=== PATIENT | male | born 1950 | race Caucasian/White ===

== ENCOUNTER 2017-05-06 14:39 | Inpatient (IN) | payer BC, OTHER ==
[~2017-05-06] VITALS: Ht 165.1 cm; Wt 104.9 kg
[2017-05-06] MEDS ORDERED: dilTIAZem IV PUSH 25 MG/5 ML VIAL IVP ONE (15:15)
[2017-05-06 15:17] LABS: BASO # 0.1 x10^3/uL (0.0-0.2); BASO % 0 % (0-3); EOS % 0 % (0-3); HEMATOCRIT 45.4 % (39.0-53.0); HEMOGLOBIN 15.3 g/dL (13.0-17.5); LYMPH # 1.1 x10^3/uL (1.0-4.8); LYMPH % 5 % (24-48); MEAN CORPUSCULAR HEMOGLOBIN 31 pg (25-35); MEAN CORPUSCULAR HGB CONC 34 g/dL (31-37); MEAN CORPUSCULAR VOLUME 92 fL (79-100); MONO % 9 % (0-9); NEUT % 86 % (31-73); PLATELET COUNT 180 x10^3/uL (140-400); RED BLOOD COUNT 4.95 x10^6/uL (4.30-5.70); RED CELL DISTRIBUTION WIDTH 13.7 % (11.5-14.5); WHITE BLOOD COUNT 23.2 x10^3/uL (4.0-11.0)
[2017-05-06 15:47] LABS: CREATININE 1.7 mg/dL (0.7-1.3); GFR 40.8; POTASSIUM 3.9 mmol/L (3.5-5.1)
--- NOTE | 2017-05-06 15:52 | PHYS DOC ---
Past Medical History Past Medical History: No Pertinent History Past Surgical History: Other Additional Past Surgical Histo: back sx. benign tumor removed from groin Alcohol Use: Sober Drug Use: None Adult General Chief Complaint Chief Complaint: ABDOMINAL PAIN HPI HPI Patient is a 66 year old morbidly obese male with history of hypertension who presents with sharp written periumbilical pain 24 hours. Pain is described as sharp, radiates to back and is rated mild to severe. Pain is currently mild were not present. Back pain is also resolved. Patient reports nausea and vomiting at times symptoms began. Currently denies nausea. Denies constipation or diarrhea. No flank, chest pain, shortness of breath. No fever chills or sweats. No prior abdominal surgeries. Of note, patient was in A. fib with RVR with a heart rate in the 130s. Patient denies chest pain, palpitations, dizziness lightheadedness or increased fatigue. Patient does not see a doctor routine basis has not been evaluated the past 2 years. He states he was told 3 years ago and had intermittent A. fib was not started on medications. Patient denies increased leg pain or swelling. No other acute symptoms or complaints. Patient is a nonsmoker. His PCP is Dr. David Thompson. Review of Systems Review of Systems Review symptoms as per history of present illness. All other review symptoms are negative. Current Medications Current Medications Current Medications Medications (Trade) Dose Ordered Sig/Gary Start Time Stop Time Status Last Admin Dose Admin Diltiazem HCl (Cardizem) 20 mg 1X ONCE 05/06/17 15:15 05/06/17 15:16 DC 05/06/17 15:18 20 MG Diltiazem HCl 125 mg/Dextrose 125 ml @ 0 mls/hr 1X ONCE 05/06/17 15:15 05/06/17 15:16 DC 05/06/17 15:18 5 MLS/HR Furosemide (Lasix) 40 mg DAILY 05/07/17 09:00 Info (Do NOT chart on this entry -- for MONITORING) 1 each PRN DAILY PRN 05/06/17 16:45 05/08/17 16:44 Iohexol (Omnipaque 350 Mg/ml) 80 ml 1X ONCE 05/06/17 16:45 05/06/17 16:46 DC 05/06/17 16:54 80 ML Allergies Allergies Allergies Coded Allergies Type Severity Reaction Last Updated Verified No Known Drug Allergies 05/06/17 No Physical Exam Physical Exam Constitutional: Well developed, well nourished, no acute distress, non-toxic appearance. [] HENT: Normocephalic, atraumatic, bilateral external ears normal, oropharynx moist, no oral exudates, nose normal. [] Eyes: PERRLA, EOMI, conjunctiva normal, no discharge. [] Neck: Normal range of motion, no tenderness, supple, no stridor. [] Cardiovascular:Heart rate regular rhythm, no murmur [] Lungs & Thorax: Bilateral breath sounds with tachypnea, respirations 30-35 breaths per minute ,clear to auscultation [] Abdomen: Bowel sounds normal, soft, obesity compromising exam, mild periumbilical pain, no tenderness, unable to appreciate pulsatile mass.[] Skin: Warm, dry, no erythema, no rash. [] Back: No tenderness, no CVA tenderness. [] Extremities: No tenderness, no cyanosis, no clubbing, ROM intact, no edema. [] Neurologic: Alert and oriented X 3, normal motor function, normal sensory function, no focal deficits noted. [] Psychologic: Affect normal, judgement normal, mood normal. [] Current Patient Data Vital Signs Vital Signs Date Time Temp Pulse Resp B/P (MAP) Pulse Ox O2 Delivery O2 Flow Rate FiO2 05/06/17 17:40 100 42 115/56 (75) 95 05/06/17 16:40 Nasal Cannula 2.0 05/06/17 14:45 98.2 98.2 Lab Values Laboratory Tests Test 05/06/17 14:55 05/06/17 15:18 05/06/17 16:30 White Blood Count 23.2 x10^3/uL (4.0-11.0) H Red Blood Count 4.95 x10^6/uL (4.30-5.70) Hemoglobin 15.3 g/dL (13.0-17.5) Hematocrit 45.4 % (39.0-53.0) Mean Corpuscular Volume 92 fL (79-100) Mean Corpuscular Hemoglobin 31 pg (25-35) Mean Corpuscular Hemoglobin Concent 34 g/dL (31-37) Red Cell Distribution Width 13.7 % (11.5-14.5) Platelet Count 180 x10^3/uL (140-400) Neutrophils (%) (Auto) 86 % (31-73) H Lymphocytes (%) (Auto) 5 % (24-48) L Monocytes (%) (Auto) 9 % (0-9) Eosinophils (%) (Auto) 0 % (0-3) Basophils (%) (Auto) 0 % (0-3) Neutrophils # (Auto) 20.0 x10^3uL (1.8-7.7) H Lymphocytes # (Auto) 1.1 x10^3/uL (1.0-4.8) Monocytes # (Auto) 2.0 x10^3/uL (0.0-1.1) H Eosinophils # (Auto) 0.0 x10^3/uL (0.0-0.7) Basophils # (Auto) 0.1 x10^3/uL (0.0-0.2) Segmented Neutrophils % 86 % (35-66) H Band Neutrophils % 4 % (0-9) Lymphocytes % 6 % (24-48) L Monocytes % 4 % (0-10) Platelet Estimate Adequate (ADEQUATE) D-Dimer (Deann) 1.14 ug/mlFEU (0.00-0.50) H Sodium Level 133 mmol/L (136-145) L Potassium Level 3.9 mmol/L (3.5-5.1) Chloride Level 95 mmol/L (98-107) L Carbon Dioxide Level 26 mmol/L (21-32) Anion Gap 12 (6-14) Blood Urea Nitrogen 19 mg/dL (8-26) Creatinine 1.7 mg/dL (0.7-1.3) H Estimated GFR (Cockcroft-Gault) 40.8 BUN/Creatinine Ratio 11 (6-20) Glucose Level 173 mg/dL (70-99) H Calcium Level 9.0 mg/dL (8.5-10.1) Total Bilirubin 2.6 mg/dL (0.2-1.0) H Aspartate Amino Transferase (AST) 23 U/L (15-37) Alanine Aminotransferase (ALT) 29 U/L (16-63) Alkaline Phosphatase 89 U/L (46-116) Troponin I Quantitative < 0.017 ng/mL (0.000-0.055) C-Reactive Protein, Quantitative 234.4 mg/L (0-3.3) H GL-Qrs-Z-Type Natriuretic Peptide 1869 pg/mL (0-124) H Total Protein 7.7 g/dL (6.4-8.2) Albumin 3.5 g/dL (3.4-5.0) Albumin/Globulin Ratio 0.8 (1.0-1.7) L Lipase 78 U/L (73-393) O2 Saturation 95 % (92-99) Arterial Blood pH 7.47 (7.35-7.45) H Arterial Blood pCO2 at Patient Temp 35 mmHg (35-46) Arterial Blood pO2 at Patient Temp 69 mmHg (65-108) Arterial Blood HCO3 25 mmol/L (21-28) Arterial Blood Base Excess 2 mmol/L (-3-3) FiO2 28 Lactic Acid Level 1.4 mmol/L (0.4-2.0) Laboratory Tests 05/06/17 14:55 Laboratory Tests 05/06/17 14:55 EKG EKG [EKG: A. fib with RVR, ventricular rate 130, left axis deviation, QTC 409.] Radiology/Procedures Radiology/Procedures [Chest x-ray: Left lung base airspace opacity likely atelectasis or infiltrate per radiology report, CTA chest/abdomen/pelvis: No evidence of dissection or acute cardiopulmonary or intra-abdominal process per radiology report.] Course & Med Decision Making Course & Med Decision Making Pertinent Labs and Imaging studies reviewed. (See chart for details) [A. fib with RVR and congestive heart failure. Patient responded to Cardizem and oxygen. IV Lasix given. Patient started on heparin per cardiology recommendations. Patient also has nondescript abdominal pain with elevated white blood cell count and inflammatory markers. Etiology unclear. Abdomen soft , nontender on my repeat evaluation. Case reviewed in detail with Dr. Lee. Recommendations are to withhold antibiotics at this time and consult infectious disease. Infectious disease consult requested. Patient will stable at time of transfer to [facility] floor. ] Dragon Disclaimer Dragon Disclaimer This electronic medical record was generated, in whole or in part, using a voice recognition dictation system. Departure Departure Disposition: ADMITTED INPATIENT Condition: STABLE Referrals: ROMA THOMPSON MD (PCP) DANNI POTTER DO May 06, 2017 15:52
[2017-05-06 15:53] LABS: ALBUMIN 3.5 g/dL (3.4-5.0); ALBUMIN/GLOBULIN RATIO 0.8 (1.0-1.7); TOTAL BILIRUBIN 2.6 mg/dL (0.2-1.0); TOTAL PROTEIN 7.7 g/dL (6.4-8.2)
--- NOTE | 2017-05-06 15:59 | RAD ---
Examination: Single frontal view of the chest History: History of chest pain Comparison: None available Findings: Low lung volumes and technique accentuates heart size and pulmonary vascularity. Left lung base airspace opacity could be atelectasis or infiltrate. Impression: Left lung base airspace opacity likely atelectasis or infiltrate.
[2017-05-06 16:32] LABS: PLT ESTIMATE ADEQUATE (ADEQUATE)
[2017-05-06 16:42] LABS: FIO2 ABG 28; HCO3 ABG 25 mmol/L (21-28); PCO2 ABG 35 mmHg (35-46); PH ABG 7.47 (7.35-7.45); PO2 ABG 69 mmHg (65-108); SAT O2 ABG 95 % (92-99)
[2017-05-06] MEDS ORDERED: CONTRAST GIVEN MC PRN (16:45)
[2017-05-06] MEDS ORDERED: IOHEXOL 350 MG/ML 100 ML VIAL. IV ONE (16:45)
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
[2017-05-06] MEDS ORDERED: MORPHINE SULFATE 2 MG/ML DISP.SYRIN. IV PRN (19:45)
[2017-05-06] MEDS ORDERED: ONDANSETRON PF 4 MG/2 ML VIAL. IV PRN (19:45)
[2017-05-06 20:50] VITALS: BP 104/58
[2017-05-06] MEDS: HEPARIN for IV BOLUS 10,000 UNIT/10 ML VIAL. IV PRN (20:57)
[2017-05-06] MEDS: HEPARIN 25,000UTS/500ML PREMIX 500 ML IV PRN (21:02)
[2017-05-06 22:16] VITALS: BP 110/70
[2017-05-06 23:00] VITALS: BP 96/50
--- NOTE | 2017-05-06 23:06 | ACF ---
Admission Forms Criteria CARDIOLOGY GRG Clinical Indications for Admission to Inpatient Care ( [place]/check or initial the applicable condition/criteria) Hospital admission is needed for appropriate care of the patient because of ANY ONE of the following: [ ] I. Hemodynamic instability as indicated by ALL of the following (1)(2)(3) (4)(5)(6)(7)(8)(9)(10) [ ]a) Vital sign abnormality not readily corrected by appropriate treatment with 12-24 hours for ANY ONE: [ ]i) Hypotension that persists despite appropriate treatment (eg, volume repletion) [ ]ii) Tachycardiathat persists despite appropriate tx ( e.g., analgesia, fluids, sedation as indicated [ ]iii) Orthostatic vital sign changes that persists despite appropriate treatment (eg, volume repletion) [ ]b) Vital sign abnormailty that is severe indicated by ANY ONE of the following: [ ]i) Inadequate perfusion indicated by ANY ONE of the following: [ ] 1) Lactic acidosis (> 2 mmol/L) [ ] 2) New abnormal capillary refill (> 3 seconds) [ ] 3) Reduced urine output [ ] 4) New altered mental status [ ] 5) Myocardial Ischemia [ ] 6) Other metabolic acidosis (arterial pH <7.35 ) not otherwise explained. [ ]ii) Mean arterial pressure[A] less than 60 mm Hg [ ]iii) Mean arterial pressure[A] less than 70 mm Hg after 30 minutes of appropriate treatment (eg, fluid resuscitation) [ ]iv) Sustained heart rate greater than 120 beats per minute in adult or child 6 years or older[B] [ ]v) IV inotropic or vasopressor medication required to maintain adequate blood pressure or perfusion [ ] II. Severe heart failure as indicated by ANY ONE of the following(17)(18) [ ]a) Respiratory distress [ ]b) Hypotension [ ]c) Debilitating anasarca refractory to therapy (eg, tissue breakdown with infection)[C](19) [ ]d) Cardiac arrhythmias of immediate concern [ ]e) Myocardial ischemia [ ] III. Cardiac arrhythmias or findings of immediate concern indicated by ANY ONE of the following (21)(22): [ ] a) Heart rhythms that are inherently dangerous or unstable indicated by ANY ONE of the following (23)(24)(25): [ ] i) Resuscitated ventricular fibrillation or cardiac arrest [ ] ii) Ventricular escape rhythm [ ] iii) Sustained ventricular tachycardia (30 seconds or more of ventricular rhythm at greater than 100 beats per minute) [ ] iv) Nonsustained ventricular tachycardia and ANY ONE of the following: [ ] 1) Suspected cardiac ischemia as cause or consequence of ventricular tachycardia [ ] 2) Acute myocarditis [ ] b) Unstable cardiac conduction defects indicated by ANY ONE of the following(25)(26)(27) [ ] i) Type II second-degree atrioventricular block [ ]ii) Third-degree atrioventricular block [ ]iii) New-onset left bundle branch block with suspected myocardial ischemia [ ]c) Any heart rhythm and ANY ONE of the following (23)(24)(28)(29) (30) [ ] i) Continuous long-term ECG monitoring needed (e.g., initiation of drug requiring monitoring for more than 24 hours) [ ] ii) Patient has automatic implanted cardioverter defibrillator that is repeatedly firing, malfunctioning, or in need of immediate adjustment of settings beyond the scope of ambulatory or observation care [ ]d) Heart rhythms of concern due to ANY ONE of the following: [ ] i) Hypotension [ ] ii) Respiratory distress [ ] iii) Association with other significant symptoms (e.g., bradycardia with syncope or ongoing dizziness, supraventricular tachycardia with chest pain (28)(29)(31) [ ] IV. Monitoring for cardiac contusion beyond the scope of observation care needed [A](32)(33)(34) [ ] V. Surgical or device complication (e.g., valve replacement complication , ICD disfunction or pacemaker dysfunction) (49)(50)(51)(52)(53)(54) [ ] . Inpatient palliative care needed. [F](51)(52) Also use Inpatient Palliative Care Criteria [ ] VII. Nonbacterial thrombotic (marantic) endocarditis(43)(44)(55)(56)(57) [X ] VIII. Cardiology condition, symptom, or finding for which emergency and observation care has failed or are not considered appropriate. [ ] IX. Acute valvular disease requiring inpatient as indicated by ANY ONE of the following (40)(41) [ ]a) Acute valvular regurgitation (42) [ ]b) Noninfectious valvulitis (43)(44) [ ]c) Obstructive valve thrombosis (45)(46) [ ]d) Paravalvular leak(47)(48) [ ]e) Other significant valvular disorder remaining after emergency or observation level of care (as appropriate) [ ]X. Pericardial disease requiring inpatient treatment as indicated by ANY ONE of the following (35)(36)(37)(38) [ ]a) Suspected tamponade [ ]b) Hemopericardium [ ]c) Other significant pericardial disorder remaining after emergency or observation level of care (as appropriate)(39) [ ] XI. Cardiac ischemia beyond scope of emergency and observation care. [ ] XII. Cyanotic heart disease requiring inpatient care as indicated by 1 or more of the following(58)(59)(60): [ ]a) Acute onset of hypoxemia [ ]b) Exacerbation [ ] XIII. Hypertension requiring inpatient treatment as indicated by ANYONE of the following(11)(12)(13)(14): [ ]a) Severe hypertension (SBP greater than 180 mm Hg or DBP greater than 110 mm Hg, or greater than the 95th percentile for age, gender, and height in pediatric patients) that cannot be controlled (eg, to SBP less than 160 mm Hg and DBP less than 100 mm Hg) by emergency department or observation care treatment(15) [ ]b) Acute end organ damage secondary to hypertension (SBP greater than 140 mm Hg or DBP greater than 90 mm Hg) as indicated by ANYONE of the following: [ ] i) Hypertensive encephalopathy (eg, Altered mental status)(16) [ ] ii) Cerebral infarction [ ] iii) Intracranial hemorrhage [ ] iv) Myocardial ischemia or infarction [ ] v) Heart failure (eg, pulmonary edema) [ ] vi) Aortic dissection [ ] vii) Increased creatinine (new) with reduction of more than 50% in estimated glomerular filtration rate from baseline [ ] viii) Papilledema [ ] ix) Retinal hemorrhage [ ] x) Microangiopathic hemolytic anemia [ ] xi) Seizure [ ] xii) Other significant finding secondary to hypertension [ ] XIV. Complications of transplanted heart indicated by ANY ONE of the following(61): [ ]a) Acute graft rejection requiring inpatient management (eg, intravenous imunosuppression)(62)(63) [ ]b) Acute graft heart failure indicated by ANY ONE of the following(64): [ ] i) Hemodynamic instability [ ] ii) Cardiac arrhythmias of immediate concern [ ] iii) Pulmonary edema that is very severe (eg, mechanical ventilation needed, imminent or likely, need for 100% oxygen to keep oxygen saturation above 90%) [ ] iv) Pulmonary edema that is persistent as indicated by ALL of the following: [ ] 1) New need for oxygen therapy to keep oxygen saturation above 90 % (or increased FiO2 need from baseline) [ ] 2) Has not improved sufficiently with emergency department or observation care IV diuretics or other heart failure treatments[E]. [ ] iv) Altered mental status that is severe or persistent [ ] iv) Increased creatinine (new on laboratory test) with reduction of more than 50% in estimated glomerular filtration rate from baseline [ ] iv) Progressively (ongoing) rising creatinine (known from past laboratory test) with reduction of more than 25% in estimated glomerular filtration rate from baseline [ ] iv) Acute renal failure [ ] iv) Acute peripheral ischemia (eg, examination shows pulseless, cool, mottled, or cyanotic extremity) [ ] iv) Pulmonary artery catheter monitoring needed [ ] iv) Other sign or symptom of heart failure requiring inpatient treatment (ie, too severe or not responsive to outpatient and observation care treatment) [ ]c) Infection requiring inpatient management (eg, Hemodynamic instability, need for intravenous antimicrobial treatment)(66)(67)(68)(69)(70) [ ]d) Cardiac allograft vasculopathy requiring inpatient management (eg evidence of cardiacischemia)(71) [ ]e) Other complication of transplanted heart (eg, stroke, severe pulmonary hypertension, severe valvular dysfunction) requiring inpatient management(72) The original [facility] content created by [employer] has been revised. The portions of the content which have been revised are identified through the use of italic text, and [facility] has neither reviewed nor approved the modified material. All other unmodified content is copyright [facility] Please see references footnoted in the original [facility] edition 2014 Admission Criteria Met?: Yes MATT HEDRICK May 06, 2017 23:06
[2017-05-06] MEDS: AZITHROMYCIN 500 MG in IV NORMAL SALINE 250ML 250 ML IV SCH (23:38)
[2017-05-07] VITALS (12 sets, daily range): BP systolic 99–185; BP diastolic 51–87
[2017-05-07 04:52] LABS: BASO # 0.1 x10^3/uL (0.0-0.2); BASO % 0 % (0-3); EOS % 0 % (0-3); HEMATOCRIT 47.3 % (39.0-53.0); HEMOGLOBIN 15.3 g/dL (13.0-17.5); LYMPH # 1.7 x10^3/uL (1.0-4.8); LYMPH % 8 % (24-48); MEAN CORPUSCULAR HEMOGLOBIN 31 pg (25-35); MEAN CORPUSCULAR HGB CONC 32 g/dL (31-37); MEAN CORPUSCULAR VOLUME 94 fL (79-100); MONO % 9 % (0-9); NEUT % 82 % (31-73); PLATELET COUNT 135 x10^3/uL (140-400); RED BLOOD COUNT 5.03 x10^6/uL (4.30-5.70); RED CELL DISTRIBUTION WIDTH 13.8 % (11.5-14.5)
[2017-05-07 05:05] LABS: ALBUMIN 3.3 g/dL (3.4-5.0); ALBUMIN/GLOBULIN RATIO 0.9 (1.0-1.7); CALCIUM 8.7 mg/dL (8.5-10.1); CREATININE 1.5 mg/dL (0.7-1.3); GFR 47.1; POTASSIUM 4.3 mmol/L (3.5-5.1); TOTAL BILIRUBIN 2.4 mg/dL (0.2-1.0); TOTAL PROTEIN 6.8 g/dL (6.4-8.2)
[2017-05-07] MEDS: HEPARIN for IV BOLUS 10,000 UNIT/10 ML VIAL. IV PRN (06:00)
--- NOTE | 2017-05-07 08:23 | EKG ---
[facility] [address] [place] [address] Test Date: 2017-05-06 Test Time: 14:59:23 Pat Name: VASILE LANGE Department: Room: Gender: M Swamper: : 1950 Requested By: DANNI POTTER Order Number: [id number] Reading MD: Measurements Intervals Douglas Rate: 130 P: ND: QRS: -3 QRSD: 86 T: 9 QT: 274 QTc: 409 Interpretive Statements IRREGULAR RHYTHM, NO P-WAVE FOUND LEFTWARD AXIS R-S TRANSITION ZONE IN V LEADS DISPLACED TO THE LEFT OTHERWISE NORMAL ECG RI6.01 No previous ECG available for comparison
--- NOTE | 2017-05-07 08:50 | PDOC ---
Infectious Disease Note ROS ROS GEN: Denies fevers, chills, sweats HEENT: Denies blurred vision, sore throat CV: Denies chest pain RESP: Denies shortness of air, cough GI: Denies n/v/d NEURO: Denies confusion, dizziness MSK: Denies weakness, joint pain/swelling Vital Sign Vital Signs Vital Signs Date Time Temp Pulse Resp B/P (MAP) Pulse Ox O2 Delivery O2 Flow Rate FiO2 05/07/17 07:50 Nasal Cannula 2.0 05/07/17 07:16 98.2 72 21 131/87 (102) 97 98.2 Physical Exam PHYSICAL EXAM GENERAL: NAD, Alert HEENT: PERRL, OC/OP NECK: Supple, no JVD, no LN LUNGS: Clear HEART: S1S2, no gallop, no murmur ABD: Soft, NT, no organomegaly, no rebound EXT: No edema, no cyanosis MANAGER COMPENSATION: Alert, oriented x 3, no focal neurologic deficit SKIN: No rash IV: ok Labs Lab Laboratory Tests Test 05/06/17 14:55 05/06/17 15:18 05/06/17 16:30 05/07/17 03:30 White Blood Count 23.2 x10^3/uL (4.0-11.0) 21.0 x10^3/uL (4.0-11.0) Red Blood Count 4.95 x10^6/uL (4.30-5.70) 5.03 x10^6/uL (4.30-5.70) Hemoglobin 15.3 g/dL (13.0-17.5) 15.3 g/dL (13.0-17.5) Hematocrit 45.4 % (39.0-53.0) 47.3 % (39.0-53.0) Mean Corpuscular Volume 92 fL (79-100) 94 fL (79-100) Mean Corpuscular Hemoglobin 31 pg (25-35) 31 pg (25-35) Mean Corpuscular Hemoglobin Concent 34 g/dL (31-37) 32 g/dL (31-37) Red Cell Distribution Width 13.7 % (11.5-14.5) 13.8 % (11.5-14.5) Platelet Count 180 x10^3/uL (140-400) 135 x10^3/uL (140-400) Neutrophils (%) (Auto) 86 % (31-73) 82 % (31-73) Lymphocytes (%) (Auto) 5 % (24-48) 8 % (24-48) Monocytes (%) (Auto) 9 % (0-9) 9 % (0-9) Eosinophils (%) (Auto) 0 % (0-3) 0 % (0-3) Basophils (%) (Auto) 0 % (0-3) 0 % (0-3) Neutrophils # (Auto) 20.0 x10^3uL (1.8-7.7) 17.2 x10^3uL (1.8-7.7) Lymphocytes # (Auto) 1.1 x10^3/uL (1.0-4.8) 1.7 x10^3/uL (1.0-4.8) Monocytes # (Auto) 2.0 x10^3/uL (0.0-1.1) 2.0 x10^3/uL (0.0-1.1) Eosinophils # (Auto) 0.0 x10^3/uL (0.0-0.7) 0.0 x10^3/uL (0.0-0.7) Basophils # (Auto) 0.1 x10^3/uL (0.0-0.2) 0.1 x10^3/uL (0.0-0.2) Segmented Neutrophils % 86 % (35-66) Band Neutrophils % 4 % (0-9) Lymphocytes % 6 % (24-48) Monocytes % 4 % (0-10) Platelet Estimate Adequate (ADEQUATE) D-Dimer (Deann) 1.14 ug/mlFEU (0.00-0.50) Sodium Level 133 mmol/L (136-145) 137 mmol/L (136-145) Potassium Level 3.9 mmol/L (3.5-5.1) 4.3 mmol/L (3.5-5.1) Chloride Level 95 mmol/L (98-107) 99 mmol/L (98-107) Carbon Dioxide Level 26 mmol/L (21-32) 25 mmol/L (21-32) Anion Gap 12 (6-14) 13 (6-14) Blood Urea Nitrogen 19 mg/dL (8-26) 27 mg/dL (8-26) Creatinine 1.7 mg/dL (0.7-1.3) 1.5 mg/dL (0.7-1.3) Estimated GFR (Cockcroft-Gault) 40.8 47.1 BUN/Creatinine Ratio 11 (6-20) 18 (6-20) Glucose Level 173 mg/dL (70-99) 127 mg/dL (70-99) Calcium Level 9.0 mg/dL (8.5-10.1) 8.7 mg/dL (8.5-10.1) Total Bilirubin 2.6 mg/dL (0.2-1.0) 2.4 mg/dL (0.2-1.0) Aspartate Amino Transf (AST/SGOT) 23 U/L (15-37) 28 U/L (15-37) Alanine Aminotransferase (ALT/SGPT) 29 U/L (16-63) 26 U/L (16-63) Alkaline Phosphatase 89 U/L (46-116) 97 U/L (46-116) Troponin I Quantitative < 0.017 ng/mL (0.000-0.055) < 0.017 ng/mL (0.000-0.055) C-Reactive Protein, Quantitative 234.4 mg/L (0-3.3) 267.5 mg/L (0-3.3) TQ-Bjx-J-Type Natriuretic Peptide 1869 pg/mL (0-124) 863 pg/mL (0-124) Total Protein 7.7 g/dL (6.4-8.2) 6.8 g/dL (6.4-8.2) Albumin 3.5 g/dL (3.4-5.0) 3.3 g/dL (3.4-5.0) Albumin/Globulin Ratio 0.8 (1.0-1.7) 0.9 (1.0-1.7) Lipase 78 U/L (73-393) O2 Saturation 95 % (92-99) Arterial Blood pH 7.47 (7.35-7.45) Arterial Blood pCO2 at Patient Temp 35 mmHg (35-46) Arterial Blood pO2 at Patient Temp 69 mmHg (65-108) Arterial Blood HCO3 25 mmol/L (21-28) Arterial Blood Base Excess 2 mmol/L (-3-3) FiO2 28 Lactic Acid Level 1.4 mmol/L (0.4-2.0) Heparin Anti-Xa Act, Unfractionated < 0.10 IU/mL (0.30-0.70) Objective Assessment Leukocytosis COPD A fib with RVR Abdominal pain and back pain resolved Obesity Plan Plan of Care rocephine and azithro soon to change to po check cultures DELICIA HOWELL MD May 07, 2017 08:50
[2017-05-07] MEDS ORDERED: FUROSEMIDE 40 MG/4 ML VIAL. IVP SCH (09:00)
[2017-05-07] MEDS ORDERED: PNEUMOC CONJ VACC 23-VALENT 0.5 ML VIAL. VAX IM ONE (09:00)
[2017-05-07] MEDS ORDERED: PNEUMOCOCCAL VAX SCREEN BY RX. MC ONE (09:00)
[2017-05-07] MEDS: FUROSEMIDE 20 MG/2 ML VIAL. IVP SCH ×2 (09:07→16:22)
--- NOTE | 2017-05-07 09:20 | PDOC ---
GENERAL General: see dictated H&P. Problems: VITAL SIGNS Vital Signs: Vital Signs Date Time Temp Pulse Resp B/P (MAP) Pulse Ox O2 Delivery O2 Flow Rate FiO2 05/07/17 07:50 Nasal Cannula 2.0 05/07/17 07:16 98.2 72 21 131/87 (102) 97 98.2 ALLERGIES Allergies: Allergies Coded Allergies Type Severity Reaction Last Updated Verified No Known Drug Allergies 05/06/17 No MEDS Medications: Current Medications Medications (Trade) Dose Ordered Sig/Gary Start Time Stop Time Status Last Admin Dose Admin Azithromycin 500 mg/Sodium Chloride 250 ml @ 250 mls/hr Q24H 05/06/17 23:30 05/06/17 23:38 250 MLS/HR Ceftriaxone Sodium 1 gm/ Sodium Chloride 50 ml @ 100 mls/hr Q24H 05/06/17 23:30 05/06/17 23:38 100 MLS/HR Diltiazem HCl (Cardizem) 20 mg 1X ONCE 05/06/17 15:15 05/06/17 15:16 DC 05/06/17 15:18 20 MG Diltiazem HCl 125 mg/Dextrose 125 ml @ 0 mls/hr CONT PRN 05/06/17 20:00 05/06/17 23:39 10 MLS/HR Furosemide (Lasix) 20 mg [id number] 05/07/17 09:00 05/07/17 09:07 20 MG Heparin Sodium (Porcine) (Heparin Sodium) 2,650 unit PRN Q6HRS PRN 05/06/17 19:45 05/07/17 06:00 2,650 UNIT Heparin Sodium/ Dextrose 500 ml @ 0 mls/hr CONT PRN 05/06/17 20:00 05/06/17 21:02 20 MLS/HR Info (Do NOT chart on this entry -- for MONITORING) 1 each PRN DAILY PRN 05/06/17 16:45 05/08/17 16:44 Iohexol (Omnipaque 350 Mg/ml) 80 ml 1X ONCE 05/06/17 16:45 05/06/17 16:46 DC 05/06/17 16:54 80 ML Morphine Sulfate 2 mg PRN Q2HR PRN 05/06/17 19:45 05/07/17 19:44 Ondansetron HCl (Zofran) 4 mg PRN Q8HRS PRN 05/06/17 19:45 05/07/17 19:44 Pneumococcal Polyvalent Vaccine (Do NOT chart on this placeholder) 1 each 1X ONCE 05/07/17 09:00 05/07/17 09:01 UNV Pneumococcal Polyvalent Vaccine (Pneumovax 23) 0.5 ml ONCE ONCE 05/07/17 09:00 05/07/17 09:01 DC 05/07/17 09:07 0.5 ML LAB Lab: Laboratory Tests Test 05/06/17 14:55 05/06/17 15:18 05/06/17 16:30 05/07/17 03:30 White Blood Count 23.2 x10^3/uL (4.0-11.0) 21.0 x10^3/uL (4.0-11.0) Red Blood Count 4.95 x10^6/uL (4.30-5.70) 5.03 x10^6/uL (4.30-5.70) Hemoglobin 15.3 g/dL (13.0-17.5) 15.3 g/dL (13.0-17.5) Hematocrit 45.4 % (39.0-53.0) 47.3 % (39.0-53.0) Mean Corpuscular Volume 92 fL (79-100) 94 fL (79-100) Mean Corpuscular Hemoglobin 31 pg (25-35) 31 pg (25-35) Mean Corpuscular Hemoglobin Concent 34 g/dL (31-37) 32 g/dL (31-37) Red Cell Distribution Width 13.7 % (11.5-14.5) 13.8 % (11.5-14.5) Platelet Count 180 x10^3/uL (140-400) 135 x10^3/uL (140-400) Neutrophils (%) (Auto) 86 % (31-73) 82 % (31-73) Lymphocytes (%) (Auto) 5 % (24-48) 8 % (24-48) Monocytes (%) (Auto) 9 % (0-9) 9 % (0-9) Eosinophils (%) (Auto) 0 % (0-3) 0 % (0-3) Basophils (%) (Auto) 0 % (0-3) 0 % (0-3) Neutrophils # (Auto) 20.0 x10^3uL (1.8-7.7) 17.2 x10^3uL (1.8-7.7) Lymphocytes # (Auto) 1.1 x10^3/uL (1.0-4.8) 1.7 x10^3/uL (1.0-4.8) Monocytes # (Auto) 2.0 x10^3/uL (0.0-1.1) 2.0 x10^3/uL (0.0-1.1) Eosinophils # (Auto) 0.0 x10^3/uL (0.0-0.7) 0.0 x10^3/uL (0.0-0.7) Basophils # (Auto) 0.1 x10^3/uL (0.0-0.2) 0.1 x10^3/uL (0.0-0.2) Segmented Neutrophils % 86 % (35-66) Band Neutrophils % 4 % (0-9) Lymphocytes % 6 % (24-48) Monocytes % 4 % (0-10) Platelet Estimate Adequate (ADEQUATE) D-Dimer (Deann) 1.14 ug/mlFEU (0.00-0.50) Sodium Level 133 mmol/L (136-145) 137 mmol/L (136-145) Potassium Level 3.9 mmol/L (3.5-5.1) 4.3 mmol/L (3.5-5.1) Chloride Level 95 mmol/L (98-107) 99 mmol/L (98-107) Carbon Dioxide Level 26 mmol/L (21-32) 25 mmol/L (21-32) Anion Gap 12 (6-14) 13 (6-14) Blood Urea Nitrogen 19 mg/dL (8-26) 27 mg/dL (8-26) Creatinine 1.7 mg/dL (0.7-1.3) 1.5 mg/dL (0.7-1.3) Estimated GFR (Cockcroft-Gault) 40.8 47.1 BUN/Creatinine Ratio 11 (6-20) 18 (6-20) Glucose Level 173 mg/dL (70-99) 127 mg/dL (70-99) Calcium Level 9.0 mg/dL (8.5-10.1) 8.7 mg/dL (8.5-10.1) Total Bilirubin 2.6 mg/dL (0.2-1.0) 2.4 mg/dL (0.2-1.0) Aspartate Amino Transf (AST/SGOT) 23 U/L (15-37) 28 U/L (15-37) Alanine Aminotransferase (ALT/SGPT) 29 U/L (16-63) 26 U/L (16-63) Alkaline Phosphatase 89 U/L (46-116) 97 U/L (46-116) Troponin I Quantitative < 0.017 ng/mL (0.000-0.055) < 0.017 ng/mL (0.000-0.055) C-Reactive Protein, Quantitative 234.4 mg/L (0-3.3) 267.5 mg/L (0-3.3) EH-Cny-L-Type Natriuretic Peptide 1869 pg/mL (0-124) 863 pg/mL (0-124) Total Protein 7.7 g/dL (6.4-8.2) 6.8 g/dL (6.4-8.2) Albumin 3.5 g/dL (3.4-5.0) 3.3 g/dL (3.4-5.0) Albumin/Globulin Ratio 0.8 (1.0-1.7) 0.9 (1.0-1.7) Lipase 78 U/L (73-393) O2 Saturation 95 % (92-99) Arterial Blood pH 7.47 (7.35-7.45) Arterial Blood pCO2 at Patient Temp 35 mmHg (35-46) Arterial Blood pO2 at Patient Temp 69 mmHg (65-108) Arterial Blood HCO3 25 mmol/L (21-28) Arterial Blood Base Excess 2 mmol/L (-3-3) FiO2 28 Lactic Acid Level 1.4 mmol/L (0.4-2.0) Heparin Anti-Xa Act, Unfractionated < 0.10 IU/mL (0.30-0.70) ROMA THOMPSON MD May 07, 2017 09:20
--- NOTE | 2017-05-07 10:07 | HP ---
ADMIT DATE: 05/06/2017 CHIEF COMPLAINT AND HISTORY OF PRESENT ILLNESS: This 66-year-old white male presented to the Emergency Room on the day of admission with having had upper abdominal pain with radiation to the back, which was the worst pain of his life. The day prior, he took some aspirin and it seemed to get better. He did have vomiting with it, but did not have any hematemesis with that. He then also all week long has just been feeling somewhat worse and like his energy was gone. He notes really orangish/reddish looking urine and I can find no evidence of UA collected since admission. He otherwise denies any focal symptoms other than he has been more short of breath and has noticed his ankles were more swollen. He was also found to be in AFib with a rapid ventricular response with a rate of 130s on admission and admitted with Cardizem drip and heparin for the same, was also noted to have a white count of 23,000 with a left shift without a definite source, although chest x-ray showed a possible left basilar infiltrate, although he has had no cough or any symptoms to go with and his chest is remarkably clear. His creatinine was also 1.7 on admission. I have no baseline on him to know where this is normally at. PAST MEDICAL HISTORY: Unremarkable. 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 SOCIAL HISTORY: He is a smoker, nondrinker, does not use drugs, takes care of his mother who has dementia. FAMILY HISTORY: Positive for dementia in his mother, colon cancer in his father. MEDICATIONS: None at the time of admission, at least as obtained in the Emergency Room. ALLERGIES: He has no known drug allergies. PHYSICAL EXAMINATION: GENERAL: He is a well-developed, well-nourished white male in no acute distress. VITAL SIGNS: Stable. He is afebrile since admission, pulses are down in the 100 range on a Cardizem and heparin drip. At the time of my examination, he is still on atrial fibrillation. HEENT: Remarkable for glasses. NECK: Supple without bruit, thyromegaly. CHEST: Clear to auscultation and percussion. HEART: Irregularly irregular with rate of approximately 100 without S3, S4, or murmur. ABDOMEN: Soft, nontender, without hepatosplenomegaly or masses. EXTREMITIES: Without cyanosis, clubbing, there is trace edema. NEUROLOGIC: He is intact. IMPRESSION: 1. Atrial fibrillation with rapid ventricular response, being dealt with Cardizem, heparin and Cardiology consultation. 2. Abdominal pain with radiation to the back, uncertain etiology. 3. Abnormal colored urine. I have ordered a UA and we will follow up on that. 4. Leukocytosis with left shift of uncertain etiology, with ID consulted and they have started him on Rocephin and Zithromax. PLAN: The patient will be monitored, managed and treated appropriately. ROMA THOMPSON MD DR: LAUREN/fransico JOB#: [id number] / [id number]
[2017-05-07] MEDS ORDERED: ANTI-COAG MONITOR BY PHARMACY. MC PRN (10:15)
[2017-05-07] MEDS: HEPARIN 25,000UTS/500ML PREMIX 500 ML IV PRN (16:43)
[2017-05-07] MEDS: AZITHROMYCIN 500 MG in IV NORMAL SALINE 250ML 250 ML IV SCH (23:05)
[2017-05-08 03:09] VITALS: BP 142/83
[2017-05-08 07:07] LABS: BASO % 0 % (0-3); EOS % 1 % (0-3); HEMATOCRIT 39.7 % (39.0-53.0); HEMOGLOBIN 12.9 g/dL (13.0-17.5); LYMPH # 1.2 x10^3/uL (1.0-4.8); LYMPH % 7 % (24-48); MEAN CORPUSCULAR HEMOGLOBIN 30 pg (25-35); MEAN CORPUSCULAR HGB CONC 32 g/dL (31-37); MEAN CORPUSCULAR VOLUME 93 fL (79-100); MONO % 11 % (0-9); NEUT % 82 % (31-73); PLATELET COUNT 166 x10^3/uL (140-400); RED BLOOD COUNT 4.28 x10^6/uL (4.30-5.70); RED CELL DISTRIBUTION WIDTH 13.6 % (11.5-14.5); WHITE BLOOD COUNT 17.5 x10^3/uL (4.0-11.0)
[2017-05-08 07:24] LABS: ALBUMIN 2.7 g/dL (3.4-5.0); ALBUMIN/GLOBULIN RATIO 0.6 (1.0-1.7); CALCIUM 8.5 mg/dL (8.5-10.1); CREATININE 1.1 mg/dL (0.7-1.3); GFR 67.4; POTASSIUM 3.6 mmol/L (3.5-5.1); TOTAL BILIRUBIN 1.5 mg/dL (0.2-1.0); TOTAL PROTEIN 6.9 g/dL (6.4-8.2)
[2017-05-08 07:40] VITALS: BP 159/83
--- NOTE | 2017-05-08 08:21 | PDOC ---
Infectious Disease Note Subjective Subjective pt feeling better, no abd pain or n/v ROS ROS GEN: Denies fevers, chills, sweats HEENT: Denies blurred vision, sore throat CV: Denies chest pain RESP: Denies shortness of air, cough GI: Denies n/v/d NEURO: Denies confusion, dizziness MSK: Denies weakness, joint pain/swelling Vital Sign Vital Signs Vital Signs Date Time Temp Pulse Resp B/P (MAP) Pulse Ox O2 Delivery O2 Flow Rate FiO2 05/08/17 07:40 97.8 80 21 159/83 (108) 93 Nasal Cannula 2.0 97.8 Physical Exam PHYSICAL EXAM GENERAL: NAD, Alert HEENT: PERRL, OC/OP NECK: Supple, no JVD, no LN LUNGS: Clear HEART: S1S2, no gallop, no murmur ABD: Soft, NT, no organomegaly, no rebound EXT: No edema, no cyanosis SUPERVISOR ROUGH END: Alert, oriented x 3, no focal neurologic deficit SKIN: No rash IV: ok Labs Lab Laboratory Tests Test 05/07/17 12:00 05/07/17 17:45 05/08/17 00:20 05/08/17 06:15 Heparin Anti-Xa Act, Unfractionated 0.24 IU/mL (0.30-0.70) 0.30 IU/mL (0.30-0.70) 0.32 IU/mL (0.30-0.70) White Blood Count 17.5 x10^3/uL (4.0-11.0) Red Blood Count 4.28 x10^6/uL (4.30-5.70) Hemoglobin 12.9 g/dL (13.0-17.5) Hematocrit 39.7 % (39.0-53.0) Mean Corpuscular Volume 93 fL (79-100) Mean Corpuscular Hemoglobin 30 pg (25-35) Mean Corpuscular Hemoglobin Concent 32 g/dL (31-37) Red Cell Distribution Width 13.6 % (11.5-14.5) Platelet Count 166 x10^3/uL (140-400) Neutrophils (%) (Auto) 82 % (31-73) Lymphocytes (%) (Auto) 7 % (24-48) Monocytes (%) (Auto) 11 % (0-9) Eosinophils (%) (Auto) 1 % (0-3) Basophils (%) (Auto) 0 % (0-3) Neutrophils # (Auto) 14.2 x10^3uL (1.8-7.7) Lymphocytes # (Auto) 1.2 x10^3/uL (1.0-4.8) Monocytes # (Auto) 1.9 x10^3/uL (0.0-1.1) Eosinophils # (Auto) 0.1 x10^3/uL (0.0-0.7) Basophils # (Auto) 0.0 x10^3/uL (0.0-0.2) Sodium Level 137 mmol/L (136-145) Potassium Level 3.6 mmol/L (3.5-5.1) Chloride Level 98 mmol/L (98-107) Carbon Dioxide Level 31 mmol/L (21-32) Anion Gap 8 (6-14) Blood Urea Nitrogen 20 mg/dL (8-26) Creatinine 1.1 mg/dL (0.7-1.3) Estimated GFR (Cockcroft-Gault) 67.4 BUN/Creatinine Ratio 18 (6-20) Glucose Level 163 mg/dL (70-99) Calcium Level 8.5 mg/dL (8.5-10.1) Total Bilirubin 1.5 mg/dL (0.2-1.0) Aspartate Amino Transf (AST/SGOT) 17 U/L (15-37) Alanine Aminotransferase (ALT/SGPT) 25 U/L (16-63) Alkaline Phosphatase 88 U/L (46-116) Total Protein 6.9 g/dL (6.4-8.2) Albumin 2.7 g/dL (3.4-5.0) Albumin/Globulin Ratio 0.6 (1.0-1.7) Objective Assessment Leukocytosis COPD A fib with RVR Abdominal pain and back pain resolved Obesity Plan Plan of Care murtaza,, change to thompson kim cultures DELICIA Damian MD May 08, 2017 08:21
--- NOTE | 2017-05-08 08:25 | PDOC ---
GENERAL General: vss and afebrile. awake and alert. remains a-fib with rate controlled. suspect cardiology will change to po cardizem and anticoagulant today. discussed with ID and negative cultures to date and wbc decreasing and they plan to change to po. will do 6 minute walk at ok to see if O2 needs at home. Problems: VITAL SIGNS Vital Signs: Vital Signs Date Time Temp Pulse Resp B/P (MAP) Pulse Ox O2 Delivery O2 Flow Rate FiO2 05/08/17 07:40 97.8 80 21 159/83 (108) 93 Nasal Cannula 2.0 97.8 ALLERGIES Allergies: Allergies Coded Allergies Type Severity Reaction Last Updated Verified No Known Drug Allergies 05/06/17 No MEDS Medications: Current Medications Medications (Trade) Dose Ordered Sig/Gary Start Time Stop Time Status Last Admin Dose Admin Azithromycin 500 mg/Sodium Chloride 250 ml @ 250 mls/hr Q24H 05/06/17 23:30 05/07/17 23:05 250 MLS/HR Ceftriaxone Sodium 1 gm/ Sodium Chloride 50 ml @ 100 mls/hr Q24H 05/06/17 23:30 05/07/17 22:16 100 MLS/HR Diltiazem HCl (Cardizem) 20 mg 1X ONCE 05/06/17 15:15 05/06/17 15:16 DC 05/06/17 15:18 20 MG Diltiazem HCl 125 mg/Dextrose 125 ml @ 0 mls/hr CONT PRN 05/06/17 20:00 05/08/17 01:25 0 MLS/HR Furosemide (Lasix) 20 mg [id number] 05/07/17 09:00 05/07/17 16:22 20 MG Heparin Sodium (Porcine) (Heparin Sodium) 2,650 unit PRN Q6HRS PRN 05/06/17 19:45 05/07/17 06:00 2,650 UNIT Heparin Sodium/ Dextrose 500 ml @ 0 mls/hr CONT PRN 05/06/17 20:00 05/07/17 16:43 30.2 MLS/HR Info (Anti-Coagulation Monitoring By Pharmacy) 1 each PRN DAILY PRN 05/07/17 10:15 05/07/17 10:03 1 EACH Info (Do NOT chart on this entry -- for MONITORING) 1 each PRN DAILY PRN 05/06/17 16:45 05/08/17 16:44 Iohexol (Omnipaque 350 Mg/ml) 80 ml 1X ONCE 05/06/17 16:45 05/06/17 16:46 DC 05/06/17 16:54 80 ML Morphine Sulfate 2 mg PRN Q2HR PRN 05/06/17 19:45 05/07/17 19:44 DC Ondansetron HCl (Zofran) 4 mg PRN Q8HRS PRN 05/06/17 19:45 05/07/17 19:44 DC Pneumococcal Polyvalent Vaccine (Do NOT chart on this placeholder) 1 each 1X ONCE 05/07/17 09:00 05/07/17 09:01 UNV Pneumococcal Polyvalent Vaccine (Pneumovax 23) 0.5 ml ONCE ONCE 05/07/17 09:00 05/07/17 09:01 DC 05/07/17 09:07 0.5 ML LAB Lab: Laboratory Tests Test 05/07/17 12:00 05/07/17 17:45 05/08/17 00:20 05/08/17 06:15 Heparin Anti-Xa Act, Unfractionated 0.24 IU/mL (0.30-0.70) 0.30 IU/mL (0.30-0.70) 0.32 IU/mL (0.30-0.70) White Blood Count 17.5 x10^3/uL (4.0-11.0) Red Blood Count 4.28 x10^6/uL (4.30-5.70) Hemoglobin 12.9 g/dL (13.0-17.5) Hematocrit 39.7 % (39.0-53.0) Mean Corpuscular Volume 93 fL (79-100) Mean Corpuscular Hemoglobin 30 pg (25-35) Mean Corpuscular Hemoglobin Concent 32 g/dL (31-37) Red Cell Distribution Width 13.6 % (11.5-14.5) Platelet Count 166 x10^3/uL (140-400) Neutrophils (%) (Auto) 82 % (31-73) Lymphocytes (%) (Auto) 7 % (24-48) Monocytes (%) (Auto) 11 % (0-9) Eosinophils (%) (Auto) 1 % (0-3) Basophils (%) (Auto) 0 % (0-3) Neutrophils # (Auto) 14.2 x10^3uL (1.8-7.7) Lymphocytes # (Auto) 1.2 x10^3/uL (1.0-4.8) Monocytes # (Auto) 1.9 x10^3/uL (0.0-1.1) Eosinophils # (Auto) 0.1 x10^3/uL (0.0-0.7) Basophils # (Auto) 0.0 x10^3/uL (0.0-0.2) Sodium Level 137 mmol/L (136-145) Potassium Level 3.6 mmol/L (3.5-5.1) Chloride Level 98 mmol/L (98-107) Carbon Dioxide Level 31 mmol/L (21-32) Anion Gap 8 (6-14) Blood Urea Nitrogen 20 mg/dL (8-26) Creatinine 1.1 mg/dL (0.7-1.3) Estimated GFR (Cockcroft-Gault) 67.4 BUN/Creatinine Ratio 18 (6-20) Glucose Level 163 mg/dL (70-99) Calcium Level 8.5 mg/dL (8.5-10.1) Total Bilirubin 1.5 mg/dL (0.2-1.0) Aspartate Amino Transf (AST/SGOT) 17 U/L (15-37) Alanine Aminotransferase (ALT/SGPT) 25 U/L (16-63) Alkaline Phosphatase 88 U/L (46-116) Total Protein 6.9 g/dL (6.4-8.2) Albumin 2.7 g/dL (3.4-5.0) Albumin/Globulin Ratio 0.6 (1.0-1.7) ROMA THOMPSON MD May 08, 2017 08:25
[2017-05-08] MEDS: FUROSEMIDE 20 MG/2 ML VIAL. IVP SCH (08:52)
[2017-05-08] MEDS: AZITHROMYCIN 250 MG TABLET. PO SCH (10:12)
[2017-05-08] MEDS: HEPARIN 25,000UTS/500ML PREMIX 500 ML IV PRN (10:17)
[2017-05-08 11:23] VITALS: BP 152/80
--- NOTE | 2017-05-08 11:39 | PDOC2 ---
ANABELL HERRERA BLAST F[employer] HELPER 05/08/17 1139: CARDIAC CONSULT DATE OF CONSULT Date of Consult DATE: 05/08/17 TIME: 11:31 REASON FOR CONSULT Reason for Consult: AFIB with RVR REFERRING PHYSICIAN Referring Physician: Dr. Casper SOURCE Source: Chart review, Patient HISTORY OF PRESENT ILLNESS HISTORY OF PRESENT ILLNESS This is a 66 yo male who presented with complaints of abdominal pain. Was noted to be in AFIB with RVR, which prompted this consult. Cardizem gtt was initiated. Patient denies any chest pain, palpitations, dizziness, syncope, diaphoresis, or nausea/vomiting. Reports some SOA over the last couple weeks along with ESCOBEDO over the last couple of months. This past year, has to take multiple breaks to finish mowing lawn due to dyspnea, which he reports as new from previous year. Does have some mild LE edema occasionally. No prior history of AFIB or CAD. PAST MEDICAL HISTORY Cardiovascular: HTN Pulmonary: COPD, Other (TONY) GI: No pertinent hx Heme/Onc: No pertinent hx Hepatobiliary: No pertinent hx Psych: No pertinent hx Musculoskeletal: Osteoarthritis Rheumatologic: No pertinent hx Infectious disease: No pertinent hx ENT: No pertinent hx Renal/: No pertinent hx Endocrine: No pertinent hx Dermatology: No pertinent hx PAST SURGICAL HISTORY Past Surgical History: Other (back surgery) FAMILY HISTORY Family History: Cancer, Other (dementia ) SOCIAL HISTORY Smoke: No ALCOHOL: none Drugs: None Lives: with Family CURRENT MEDICATIONS CURRENT MEDICATIONS Current Medications Medications (Trade) Dose Ordered Sig/Gary Route PRN Reason Start Time Stop Time Status Last Admin Dose Admin Azithromycin (Zithromax) 250 mg DAILY PO 05/08/17 09:00 05/08/17 10:12 ALLERGIES ALLERGIES: Coded Allergies: No Known Drug Allergies (Unverified , 05/06/17) ROS Review of System 14 point ROS conducted with pertinent positives noted above in HPI. PHYSICAL EXAM General: Alert, Oriented X3, Cooperative, No acute distress HEENT: Atraumatic, Mucous membr. moist/pink Lungs: Clear to auscultation, Normal air movement Heart: Normal S1, Normal S2, Other (IRRR; tele AFIB) Abdomen: Soft, Other (obese) Extremities: Other (trace bilateral LE edema.) Skin: No breakdown, No significant lesion Neuro: Normal speech, Strength at 5/5 X4 ext, Sensation intact VITALS VITALS Vital Signs Date Time Temp Pulse Resp B/P (MAP) Pulse Ox O2 Delivery O2 Flow Rate FiO2 05/08/17 11:23 98.0 111 18 152/80 (104) 93 Nasal Cannula 2.0 98.0 LABS Lab: Laboratory Tests Test 05/07/17 12:00 05/07/17 17:45 05/08/17 00:20 05/08/17 06:15 Heparin Anti-Xa Act, Unfractionated 0.24 IU/mL (0.30-0.70) 0.30 IU/mL (0.30-0.70) 0.32 IU/mL (0.30-0.70) White Blood Count 17.5 x10^3/uL (4.0-11.0) Red Blood Count 4.28 x10^6/uL (4.30-5.70) Hemoglobin 12.9 g/dL (13.0-17.5) Hematocrit 39.7 % (39.0-53.0) Mean Corpuscular Volume 93 fL (79-100) Mean Corpuscular Hemoglobin 30 pg (25-35) Mean Corpuscular Hemoglobin Concent 32 g/dL (31-37) Red Cell Distribution Width 13.6 % (11.5-14.5) Platelet Count 166 x10^3/uL (140-400) Neutrophils (%) (Auto) 82 % (31-73) Lymphocytes (%) (Auto) 7 % (24-48) Monocytes (%) (Auto) 11 % (0-9) Eosinophils (%) (Auto) 1 % (0-3) Basophils (%) (Auto) 0 % (0-3) Neutrophils # (Auto) 14.2 x10^3uL (1.8-7.7) Lymphocytes # (Auto) 1.2 x10^3/uL (1.0-4.8) Monocytes # (Auto) 1.9 x10^3/uL (0.0-1.1) Eosinophils # (Auto) 0.1 x10^3/uL (0.0-0.7) Basophils # (Auto) 0.0 x10^3/uL (0.0-0.2) Sodium Level 137 mmol/L (136-145) Potassium Level 3.6 mmol/L (3.5-5.1) Chloride Level 98 mmol/L (98-107) Carbon Dioxide Level 31 mmol/L (21-32) Anion Gap 8 (6-14) Blood Urea Nitrogen 20 mg/dL (8-26) Creatinine 1.1 mg/dL (0.7-1.3) Estimated GFR (Cockcroft-Gault) 67.4 BUN/Creatinine Ratio 18 (6-20) Glucose Level 163 mg/dL (70-99) Calcium Level 8.5 mg/dL (8.5-10.1) Total Bilirubin 1.5 mg/dL (0.2-1.0) Aspartate Amino Transf (AST/SGOT) 17 U/L (15-37) Alanine Aminotransferase (ALT/SGPT) 25 U/L (16-63) Alkaline Phosphatase 88 U/L (46-116) Total Protein 6.9 g/dL (6.4-8.2) Albumin 2.7 g/dL (3.4-5.0) Albumin/Globulin Ratio 0.6 (1.0-1.7) ECHOCARDIOGRAM ECHOCARDIOGRAM <Conclusion> The left ventricle is normal size. Left ventricle systolic function is normal. The Ejection Fraction is 55-60%. There is no significant aortic valvular stenosis. Doppler and Color Flow revealed no significant aortic regurgitation. Doppler and Color-flow revealed trace to mild mitral regurgitation. Doppler and Color Flow revealed mild tricuspid regurgitation. The PA pressure was estimated at 28 mmHg. DATE: 07/05/16 1455 ASSESSMENT/PLAN ASSESSMENT/PLAN 1. AFIB with RVR, new onset 2. Mild acute on chronic diastolic HF 3. Hypertension 4. Abdominal pain 5. Leukocytosis 6. Obesity Recommendations Given recent ESCOBEDO, will repeat echo to assess LV function Will convert Cardizem to oral. [id number] score 2 correlating with a 4% risk for stroke. Will start Eliquis for stroke prevention. Stop heparin gtt. Convert Lasix to oral Supportive care Consider outpatient cardioversion if no spontaneous conversion Outpatient ischemic evaluation Problems: MENDOZA LEE MD 05/08/17 1616: CARDIAC CONSULT ALLERGIES ALLERGIES: Coded Allergies: No Known Drug Allergies (Unverified , 05/06/17) ASSESSMENT/PLAN ASSESSMENT/PLAN Patient seen and examined. Agree with above nurse practitioner note. 66-year-old male presenting with A. fib with RVR the setting of possible atypical pneumonia. On examination he is morbidly obese and dyspneic. Echocardiogram demonstrates normal LV function in the past with preserved LV function on the most recent echocardiogram today. Medication changes as noted above. Follow-up on an outpatient basis to determine if he still atrial fib at which point we will pursue electrical cardioversion. Problems: ANABELL HERRERA APRN May 08, 2017 11:39 MENDOZA LEE MD May 08, 2017 16:16
[2017-05-08] MEDS: APIXABAN 5 MG TABLET. PO SCH ×2 (13:39→22:15)
--- NOTE | 2017-05-08 14:51 | CARD ---
APPROVED REPORT EXAM: Two-dimensional and M-mode echocardiogram with Doppler and color Doppler. Other Information Quality : Average Rhythm : Atrial Fibrillation INDICATION Atrial Fibrillation 2D DIMENSIONS Left Atrium(2D)3.4 (1.6-4.0cm)IVSd1.2 (0.7-1.1cm) Aortic Root(2D)3.2 (2.0-3.7cm)LVDd4.6 (3.9-5.9cm) LVOT Diameter2.0 (1.8-2.4cm)PWd1.2 (0.7-1.1cm) LVDs3.3 (2.5-4.0cm)FS (%) 28.8 % SV53.9 mlLVEF(%)55.5 (>50%) Aortic Valve AoV Peak Da.91.9cm/sAoV VTI13.8cm AO Peak GR.3.4mmHgLVOT Peak Da.88.4cm/s LVOT VTI 12.61cmAO Mean GR.2mmHg MIC (VMAX)3.59az5ZEI (VTI)3.00cm2 Mitral Valve MV DECEL [id number] MVA (PHT)4.18cm2 Tricuspid Valve TR P. [id number]/sRAP [id number] TR Peak Gr.[id number] LEFT VENTRICLE The left ventricle is normal size. There is borderline concentric left ventricular hypertrophy. Left ventricle systolic function is normal. The Ejection Fraction is 55%. There is normal LV segmental wal l motion. Unable to assess diastolic function. There is no ventricular septal defect visualized. RIGHT VENTRICLE The right ventricle is normal size. The right ventricular systolic function is normal. ATRIA The left atrium size is normal. The right atrium size is normal. The interatrial septum is intact wit h no evidence for an atrial septal defect or patent foramen ovale as noted on 2-D or Doppler imaging. AORTIC VALVE The aortic valve is mildly calcified. The aortic valve is trileaflet. Doppler and Color Flow revealed no significant aortic regurgitation. There is no significant aortic valvular stenosis. MITRAL VALVE The mitral valve leaflets are thickened. There is no mitral valve stenosis. Doppler and Color Flow re vealed trace mitral regurgitation. TRICUSPID VALVE The tricuspid valve is not well visualized. Doppler and Color Flow revealed trace tricuspid regurgita tion. The PA pressure was estimated at 20 mmHg. There is no tricuspid valve stenosis. PULMONIC VALVE The pulmonic valve is not well visualized. Doppler and Color Flow revealed no pulmonic valvular regur gitation. There is no pulmonic valvular stenosis. GREAT VESSELS The aortic root is normal in size. Normal pulmonary venous flow (Doppler). The IVC was not well visua lized. PERICARDIAL EFFUSION There is no evidence of significant pericardial effusion. Critical Notification Critical Value: No <Conclusion> Left ventricle systolic function is normal. The Ejection Fraction is 55%. There is normal LV segmental wall motion. Trace mitral regurgitation. Trace tricuspid regurgitation. The PA pressure was estimated at 20 mmHg. There is no evidence of significant pericardial effusion.
[2017-05-08 15:15] VITALS: BP 157/79
[2017-05-08 19:15] VITALS: BP 135/78
[2017-05-08 22:45] VITALS: BP 149/73
[2017-05-09 02:50] VITALS: BP 155/83
[2017-05-09 07:00] VITALS: BP 158/91
--- NOTE | 2017-05-09 08:30 | PDOC ---
Infectious Disease Note Subjective Subjective pt feeling better, no abd pain or n/v ROS ROS GEN: Denies fevers, chills, sweats HEENT: Denies blurred vision, sore throat CV: Denies chest pain RESP: Denies shortness of air, cough GI: Denies n/v/d NEURO: Denies confusion, dizziness MSK: Denies weakness, joint pain/swelling Vital Sign Vital Signs Vital Signs Date Time Temp Pulse Resp B/P (MAP) Pulse Ox O2 Delivery O2 Flow Rate FiO2 05/09/17 02:50 98.1 110 22 155/83 (107) 95 Nasal Cannula 3.0 98.1 Physical Exam PHYSICAL EXAM GENERAL: NAD, Alert HEENT: PERRL, OC/OP NECK: Supple, no JVD, no LN LUNGS: Clear HEART: S1S2, no gallop, no murmur ABD: Soft, NT, no organomegaly, no rebound EXT: No edema, no cyanosis [employer]IVIL ENGINEERING ASSISTANT: Alert, oriented x 3, no focal neurologic deficit SKIN: No rash IV: ok Objective Assessment Leukocytosis COPD A fib with RVR Abdominal pain and back pain resolved Obesity Plan Plan of Care po azithro cultures neg d/c ok from ID stand point d/w dr Tremayne HOWELL,DELICIA Kirkland MD May 09, 2017 08:29
--- NOTE | 2017-05-09 08:33 | PDOC ---
GENERAL General: vss and afebrile. a-fib with rate 80-110. feels much better. still on some O2 and will check 6 minute walk prior to dc. echo essentially wnl. will check tsh with new onset a-fib. acute renal failure on admission has resolved. heparin off and eliquis ordered at 5mg po bid. dc later if ok with cardiology with med adjustment for dc per them. Problems: VITAL SIGNS Vital Signs: Vital Signs Date Time Temp Pulse Resp B/P (MAP) Pulse Ox O2 Delivery O2 Flow Rate FiO2 05/09/17 02:50 98.1 110 22 155/83 (107) 95 Nasal Cannula 3.0 98.1 ALLERGIES Allergies: Allergies Coded Allergies Type Severity Reaction Last Updated Verified No Known Drug Allergies 05/06/17 No MEDS Medications: Current Medications Medications (Trade) Dose Ordered Sig/Gary Start Time Stop Time Status Last Admin Dose Admin Apixaban (Eliquis) 5 mg BID 05/08/17 13:00 05/08/17 22:15 5 MG Azithromycin (Zithromax) 250 mg DAILY 05/08/17 09:00 05/08/17 10:12 250 MG Azithromycin 500 mg/Sodium Chloride 250 ml @ 250 mls/hr Q24H 05/06/17 23:30 05/08/17 08:22 DC 05/07/17 23:05 250 MLS/HR Ceftriaxone Sodium 1 gm/ Sodium Chloride 50 ml @ 100 mls/hr Q24H 05/06/17 23:30 05/08/17 08:22 DC 05/07/17 22:16 100 MLS/HR Diltiazem HCl (Cardizem 24hr Cd) 240 mg DAILY 05/08/17 13:00 05/08/17 13:40 240 MG Diltiazem HCl (Cardizem) 20 mg 1X ONCE 05/06/17 15:15 05/06/17 15:16 DC 05/06/17 15:18 20 MG Diltiazem HCl 125 mg/Dextrose 125 ml @ 0 mls/hr CONT PRN 05/06/17 20:00 05/08/17 12:46 DC 05/08/17 01:25 0 MLS/HR Furosemide (Lasix) 40 mg DAILY 05/09/17 09:00 Heparin Sodium (Porcine) (Heparin Sodium) 2,650 unit PRN Q6HRS PRN 05/06/17 19:45 05/08/17 12:46 DC 05/07/17 06:00 2,650 UNIT Heparin Sodium/ Dextrose 500 ml @ 0 mls/hr CONT PRN 05/06/17 20:00 05/08/17 12:46 DC 05/08/17 10:17 30.6 MLS/HR Info (Anti-Coagulation Monitoring By Pharmacy) 1 each PRN DAILY PRN 05/07/17 10:15 05/07/17 10:03 1 EACH Info (Do NOT chart on this entry -- for MONITORING) 1 each PRN DAILY PRN 05/06/17 16:45 05/08/17 16:44 DC Iohexol (Omnipaque 350 Mg/ml) 80 ml 1X ONCE 05/06/17 16:45 05/06/17 16:46 DC 05/06/17 16:54 80 ML Morphine Sulfate 2 mg PRN Q2HR PRN 05/06/17 19:45 05/07/17 19:44 DC Ondansetron HCl (Zofran) 4 mg PRN Q8HRS PRN 05/06/17 19:45 05/07/17 19:44 DC Pneumococcal Polyvalent Vaccine (Do NOT chart on this placeholder) 1 each 1X ONCE 05/07/17 09:00 05/07/17 09:01 UNV Pneumococcal Polyvalent Vaccine (Pneumovax 23) 0.5 ml ONCE ONCE 05/07/17 09:00 05/07/17 09:01 DC 05/07/17 09:07 0.5 ML ROMA THOMPSON MD May 09, 2017 08:33
[2017-05-09] MEDS ORDERED: FUROSEMIDE 40 MG TABLET. PO SCH (09:00)
[2017-05-09] MEDS: APIXABAN 5 MG TABLET. PO SCH (09:24)
[2017-05-09] MEDS: AZITHROMYCIN 250 MG TABLET. PO SCH (09:24)
--- NOTE | 2017-05-09 09:59 | PDOC ---
ANABELL HERRERA APRN 05/09/17 0959: CARDIO Progress Notes Date and Time Date of Service 05/09/17 Time of Evaluation 0945 Subjective Subjective: No Chest Pain, No shortness of breath, No Palpitations Vitals Vitals Vital Signs Date Time Temp Pulse Resp B/P (MAP) Pulse Ox O2 Delivery O2 Flow Rate FiO2 05/09/17 09:24 124 158/91 05/09/17 07:30 Nasal Cannula 3.0 05/09/17 07:00 98.0 22 95 98.0 Weight Weight [ ] Physical Exam HEENT: Neck Supple W Full Motion Chest: Symmetric LUNGS: Clear to Auscultation Heart: S1S2, irregularly irregular Abdomen: Soft N/T, Other (obese ) Extremities: No Edema, No Calf Tenderness Neurology: alert, oriented, follow commands Assessment Assessment 1. AFIB with RVR, new onset 2. Mild acute on chronic diastolic HF 3. Hypertension 4. Hyperthyroidism Recommendations HR intermittently elevated, will increase Cardizem to 360mg Continue Eliquis for stroke prophylaxis. 6 min walk prior to discharge Supportive care Hyperthyroidism management as per PCP. F/u in our office with Dr. Giron in 1 month as scheduled. Consider outpatient cardioversion if patient remains in AFIB. MENDOZA GIRON MD 05/09/17 2137: CARDIO Progress Notes Plan Plan Pt. seen and examined. Agree with above ATHLETIC COORDINATOR note. No acute events overnight. Med changes as noted above. Supportive care. TSH elevation noted. ANABELL HERRERA APRN May 09, 2017 09:59 MENDOZA GIRON MD May 09, 2017 21:37
[2017-05-09 10:12] LABS: BILIRUBIN,URINE SMALL (NEG); GLUCOSE,URINE NEGATIVE (NEG); NITRITE,URINE NEGATIVE (NEG); PH,URINE 7.5; PROTEIN,URINE NEGATIVE (NEG-TRACE)
[2017-05-09 10:28] LABS: BACTERIA,URINE 0 /HPF (0-FEW); RBC,URINE 0 /HPF (0-2); SQUAMOUS EPITHELIAL CELL,UR OCC /LPF; WBC,URINE OCC /HPF (0-4)
[2017-05-09 11:00] VITALS: BP 164/95
[2017-05-09] MEDS ORDERED: FURO-68 PO (12:10)
[2017-05-09] MEDS ORDERED: DILT360C PO (12:13)
[2017-05-09] MEDS ORDERED: APIX5TAB PO (12:13)
[2017-05-09] MEDS ORDERED: POTA20TA82 PO (12:53)
[2017-05-09] MEDS ORDERED: POTASSIUM CHLORIDE 20 MEQ TABLET.ER. PO SCH (13:30)
[2017-05-11] MEDS ORDERED: POTASSIUM CHLORIDE 10 MEQ TABLET.ER. PO ONE (09:39)
[2017-05-11] MEDS ORDERED: FUROSEMIDE 40 MG/4 ML VIAL. ONE (09:39)
[2017-05-11] MEDS ORDERED: diphenhydrAMINE HCL 25 MG CAPSULE PO ONE (09:39)
[2017-05-11] MEDS ORDERED: DOCUSATE SODIUM 100 MG CAPSULE. PO ONE (09:40)
[2017-05-11] MEDS ORDERED: FENOFIBRATE,MICRONIZED 134 MG CAPSULE PO ONE (09:40)
[2017-05-11] MEDS ORDERED: MULTIVITAMIN with MINERAL TABLET. PO ONE (09:40)
[2017-05-11] MEDS ORDERED: CARVEDILOL 12.5 MG TABLET. ONE (09:40)
[2017-05-11] MEDS ORDERED: FAMOTIDINE 20 MG TABLET. ONE (09:40)
[2017-05-11] MEDS ORDERED: hydrALAZINE 25 MG TABLET ONE (09:40)
[2017-05-11] MEDS ORDERED: amLODIPine BESYLATE 10 MG TABLET ONE (09:40)
[2017-05-11] MEDS ORDERED: ASPIRIN 325 MG TABLET ONE (09:40)
[2017-05-11] MEDS ORDERED: LEVOTHYROXINE 100 MCG TABLET ONE (09:41)
[2017-05-11] MEDS ORDERED: LOSARTAN POTASSIUM 50 MG TABLET. ONE (09:41)
--- NOTE | 2017-05-11 11:06 | CONS ---
DATE OF CONSULTATION: 05/07/2017 REQUESTING PHYSICIAN: Raffaele Casper M.D. REASON FOR CONSULTATION: Leukocytosis. HISTORY OF PRESENT ILLNESS: This is a 66-year-old gentleman with a history of COPD, he had been on at one point home oxygen that has improved, and obesity who came in with abdominal pain radiating into the back. The patient had some nausea and vomiting. Denied any fever, denied any diarrhea, denied any urinary symptoms. The patient was found to have a high white count and questionable pneumonia on chest x-ray, hence consultation. I did start Rocephin and azithromycin yesterday. The patient is feeling much better. In fact, his pain has resolved, and he is asking "when can he go home." The patient's white count had been 23,000. The patient also then subsequently received CT, which was unremarkable for pneumonia. PAST MEDICAL HISTORY: Positive for COPD, hypertension, obesity and AFib with RVR. PAST SURGICAL HISTORY: The patient has had some lung surgery done in the past. SOCIAL HISTORY: Negative for smoking, alcohol use or drug use. ALLERGIES: No known drug allergies. CURRENT MEDICATIONS: Reviewed. The patient is on Rocephin and azithromycin. REVIEW OF SYSTEMS: As per HPI. All other systems reviewed and are negative. PHYSICAL EXAMINATION: GENERAL: Alert, oriented gentleman, not in distress. VITAL SIGNS: Stable, afebrile, T-max is 99. HEENT: NAD. NECK: Supple, no JVD, no lymphadenopathy. LUNGS: Clear. CARDIOVASCULAR: S1 and S2 regular. ABDOMEN: Benign. EXTREMITIES: No edema or cyanosis. SKIN: Unremarkable. NEUROLOGIC: Intact. LABORATORY DATA: White count is down from 23,000 to 21,000. Platelets are 135, BUN 27, creatinine 1.5. BNP is 1869. Lipase is normal. Chest x-ray did show left lung base atelectasis versus infiltrate, although the CT of the chest, abdomen and pelvis was unremarkable. IMPRESSION: 1. Leukocytosis, probably reactive from nausea and vomiting, unclear if nausea and vomiting may have been secondary to the gastroenteritis. 2. Chronic obstructive pulmonary disease. 3. Abdominal pain with radiation to the back has resolved. PLAN: Recommend Rocephin and azithromycin pretty soon to be able to scale down to oral for discharge in a day or so once the white count continues to improve. Thank you very much, Dr. Casper, for giving me opportunity to participate in this patient's care. DELICIA HOWELL MD DR: ARI/fransico JOB#: [id number] / [id number]
== END 2017-05-09 13:45 | disposition home or self-care (01) | DRG 308 ==
LOC: ER 14:39 → 2 SOUTH 19:30
PROVIDERS: ADMIT Family Medicine; ATTEND Family Medicine
DX: I48.91 Unspecified atrial fibrillation (principal); I50.33 Acute on chronic diastolic (congestive) heart failure; D72.829 Elevated white blood cell count, unspecified; I11.0 Hypertensive heart disease with heart failure; E66.01 Morbid (severe) obesity due to excess calories; E05.90 Thyrotoxicosis, unspecified without thyrotoxic crisis or storm; F17.200 Nicotine dependence, unspecified, uncomplicated; G47.33 Obstructive sleep apnea (adult) (pediatric); M54.9 Dorsalgia, unspecified; M19.90 Unspecified osteoarthritis, unspecified site; J44.9 Chronic obstructive pulmonary disease, unspecified; Z80.0 Family history of malignant neoplasm of digestive organs
CPT/HCPCS: 36415; 36600; 71010; 71275; 74174; 80053; 81001; 82805; 83605; 83690; 83880; 84443; 84484; 85007; 85025; 85379; 85520; 86140; 90732; 93005; 93306; 94620; 96365; 96366; 96375; J0456; J0696; J1644; J3490; J7050; Q0144; Q9967; 99285-25; J7030

== ENCOUNTER → 2019-12-22 | Outpatient (CLI) | payer MEDICARE ==
[~2019-12-22] MED LIST: APIX5TAB PO; DILT360C PO; FURO-68 PO; POTA20TA4 PO
--- NOTE | 2019-12-22 13:18 | RAD ---
PA and lateral views of the chest. Comparison: None. Indication: Shortness of breath Findings: There is elevation right hemidiaphragm. The heart size is enlarged. No pneumothorax or effusion. No air space or interstitial disease. The bony structures are intact. Impression: 1. No acute cardiopulmonary process. 2. Cardiac megaly. Electronically signed by: Luan Mayberry MD (12/22/2019 1:15 PM) [id number]
== END | disposition home or self-care (01) ==
LOC: RAD 12:37
PROVIDERS: ATTEND Family Medicine
DX: I51.7 Cardiomegaly (principal)
CPT/HCPCS: 71046